=== PATIENT | female | born 1995 | race Caucasian/White ===

== ENCOUNTER 2018-05-05 00:38 | Emergency (ER) | payer OTHER, MEDICAID ==
[~2018-05-05] VITALS: Ht 157.5 cm; Wt 81.7 kg
[~2018-05-05 00:38] MED LIST: AMETHIA 0.15-01 EACH PO; CIPROFLOXACIN500 M1 PO; CYMBALTA60 MG PO; FLOMAX0.4 MG PO; HYDROCODONE-AP1 EAC6 PO; IBUPROFEN 800800 M1 PO; KEFLEX500 MG PO; NORCO 5-325 TA1 EACH PO; NORTRIPTYLINE H10 M1 PO; PERCOCET 5-3251 EACH PO; PREDNISONE 20 M20 MG PO; PROZAC20 MG PO; TOPAMAX 25 MG T25 M1 PO; TOPAMAX50 MG PO; TRIAMCINOLONE A80 G2 TOP; TRINATE TABLET1 TAB PO; WELLBUTRIN SR100 MG PO; ZOFRAN ODT4 MG PO; ZOFRAN ODT4 MG SUBLING; ZOLOFT50 MG PO; ZPAK PO
[2018-05-05] MEDS ORDERED: SEASONIQUE 0.11 EACH (00:47)
[2018-05-05] MEDS ORDERED: PROZAC10 MG (00:47)
[2018-05-05] MEDS ORDERED: KEFLEX500 M1 PO (01:30)
[2018-05-05 01:40] VITALS: BP 107/60
== END 2018-05-05 01:40 | disposition home or self-care (01) ==
LOC: M.ERS 00:38
DX: M79.605 Pain in left leg (principal); J45.909 Unspecified asthma, uncomplicated; F32.9 Major depressive disorder, single episode, unspecified; G43.909 Migraine, unspecified, not intractable, without status migrainosus; F17.210 Nicotine dependence, cigarettes, uncomplicated; Z88.8 Allergy status to other drugs, medicaments and biological substances; Z87.442 Personal history of urinary calculi